=== PATIENT | male | born 1990 | race Caucasian/White ===

== ENCOUNTER 2022-10-31 20:50 | Emergency (ER) | payer OTHER ==
--- OUTSIDE RECORDS SUMMARY | 2022-10-31 20:56 | XMS REPORT | Continuity of Care Document ---
:1990 Author Organization [facility] Address [address] [facility] [address] [place] [id number] Care Team Providers Name Role Phone Dolly Patel MD Primary Care Physician [phone] DOLLY PATEL Attending Clinician Unavailable Dolly Patel MD Attending Clinician Acacia Becerril RN Attending Clinician Unavailable Anaya Fox MD Attending Clinician ANAYA FOX Attending Clinician Unavailable Doctor Unassigned, [place] Attending Clinician Unavailable [facility] Attending Clinician Unavailable Aguila Ewing MD Attending Clinician AGUILA EWING Attending Clinician Unavailable AGUILA EWING Attending Clinician Unavailable Sterling Ortiz RN Attending Clinician Unavailable SIRISHA MARINELLI Attending Clinician Unavailable Only, Ang Db Test Attending Clinician Unavailable Sirisha Oropeza Attending Clinician 2, [facility] Attending Clinician Unavailable Ashlyn Staley LVN Attending Clinician Unavailable Lab, Ang - Db Attending Clinician Unavailable DOLLY PATEL Admitting Clinician Unavailable Payers Payer Name Policy Type Policy Number Effective Date Expiration Date Eva diegovicki [facility] D[facility] [id number] 2022 COMP HMO D SNP 00:00:00 [facility] [id number] 2022 STAR PLUS 00:00:00 Problems Condition Condition Condition Status Onset Resolution Last Treating Co mments Source Name Details Category Date Date Treatment Clinician Date No known No known Disease Unive rs active active ity of problems problems [facility] Allergies, Adverse Reactions, Alerts Allergy Allergy Status Severity Reaction(s) Onset Inactive Treating Comm ents Source Name Type Date Date Clinician NO KNOWN Drug Active Univers ALLERGIE Class ity of S [facility] Social History Social Habit Start Date Stop Date Quantity Comments Source History of Smokes tobacco [place] of tobacco use daily [facility] Exposure to 2022-09-11 2022-09-21 Not sure [facility] SARS-CoV-2 00:00:00 16:06:00 [facility] (event) [place] Alcohol intake 2022-09-21 2022-09-21 Ex-drinker [facility] 00:00:00 00:00:00 (finding) [facility] Tobacco use and 2022-08-23 2022-08-23 Smokeless tobacco Un iversity of exposure 00:00:00 00:00:00 non-user [facility] Sex Assigned At [birth year] Universit y of 00:00:00 00:00:00 [facility] Smoking Status Start Date Stop Date Source Smokes tobacco daily 2022-08-23 00:00:00 [facility] Ordered Filled Start Stop Current Ordering Indication Dosage Frequency Signature Comments Components Source Medication Medication Date Date Medication? Clinician (SIG) Name Name lisinopriL Yes [id number] 20mg Take 1 U nivers 20 mg 5-11 tablet by ity of tablet 00:00: mouth in [place] the Medical morning Branch and 1 tablet in the evening. montelukast Yes [id number] 10mg Take 1 Univers 10 mg 5-11 tablet by ity of tablet 00:00: mouth in [place] [address] the Medical morning. Branch lisinopriL Yes [id number] 20mg Take 1 U nivers 20 mg 5-11 tablet by ity of tablet 00:00: mouth in [place] [address] the Medical morning Branch and 1 tablet in the evening. montelukast Yes [id number] 10mg Take 1 Univers 10 mg 5-11 tablet by ity of tablet 00:00: mouth in [place] the Medical morning. Branch testosteron Yes [id number] 100mg 0.5 mL by Univers e cypionate 5-11 Intramuscu it y of 200 mg/mL 00:00: lar route [place] injection 00 weekly. Medical Branch dextroamphe 3-0 Yes [id number] 30mg Take 1 Univers tamine-amph 4-17 tablet by ity of etamine 00:00: mouth in [place] ([facility]) 00 the Medical 30 mg morning Branch tablet and 1 tablet in the evening. dextroamphe 3-0 Yes [id number] 30mg Take 1 Univers tamine-amph 4-17 tablet by ity of etamine 00:00: mouth in [place] ([facility]) 00 the Medical 30 mg morning Branch tablet and 1 tablet in the evening. dextroamphe 3-0 Yes [id number] 30mg Take 1 [facility] tamine-amph 4-17 tablet by ity of etamine 00:00: mouth in [place] ([facility]) 00 the Medical 30 mg morning Branch tablet and 1 tablet in the evening. dextroamphe 3-0 Yes [id number] 30mg Take 1 Univers tamine-amph 4-17 tablet by ity of etamine 00:00: mouth in [place] ([facility]) 00 the Medical 30 mg morning Branch tablet and 1 tablet in the evening. gadobenate 2022-0 2023- No [id number] .2mL/kg 0.2 mL/kg, Univers dimeglumine 09-02 Intravenou i ty of (MULTIHANCE 16:30: 16:27 s, ONCE, 1 [place] -20 mL) 00 :00 dose, On Medical injection [place] Branch 0.2 mL/kg 09/02/22 at 1130, Routine dextroamphe 3-0 Yes [id number] 30mg Take 1 Univers tamine-amph 3-13 tablet by ity of etamine 00:00: mouth in [place] ([facility]) 00 the Medical 30 mg morning Branch tablet and 1 tablet in the evening. clonazePAM 3-0 Yes [id number] 2mg Take 1 U nivers 2 mg tablet 3-13 tablet by ity of 00:00: mouth [place] 00 every Medical morning Branch and evening. dextroamphe 3-0 Yes [id number] 30mg Take 1 Univers tamine-amph 3-13 tablet by ity of etamine 00:00: mouth in [place] ([facility]) 00 the Medical 30 mg morning Branch tablet and 1 tablet in the evening. clonazePAM 2023-0 Yes [id number] 2mg Take 1 U nivers 2 mg tablet 3-13 tablet by ity of 00:00: mouth [place] 00 every Medical morning Branch and evening. dextroamphe 2023-0 Yes [id number] 30mg Take 1 Univers tamine-amph 3-13 tablet by ity of etamine 00:00: mouth in [place] ([facility]) 00 the Medical 30 mg morning Branch tablet and 1 tablet in the evening. clonazePAM 2023-0 Yes [id number] 2mg Take 1 U nivers 2 mg tablet 3-13 tablet by ity of 00:00: mouth [place] 00 every Medical morning Branch and evening. dextroamphe 2023-0 Yes [id number] 30mg Take 1 Univers tamine-amph 3-13 tablet by ity of etamine 00:00: mouth in [place] ([facility]) 00 the Medical 30 mg morning Branch tablet and 1 tablet in the evening. clonazePAM 2023-0 Yes [id number] 2mg Take 1 U nivers 2 mg tablet 3-13 tablet by ity of 00:00: mouth [place] 00 every Medical morning Branch and evening. dextroamphe 2023-0 Yes [id number] 30mg Take 1 Univers tamine-amph 3-13 tablet by ity of etamine 00:00: mouth [facility] [place] [facility] the Medical 30 mg morning Branch tablet and 1 tablet in the evening. clonazePAM 2023-0 Yes [id number] 2mg Take 1 U nivers 2 mg tablet 3-13 tablet by ity of 00:00: mouth [place] 00 every Medical morning Branch and evening. dextroamphe 2023-0 Yes [id number] 30mg Take 1 Univers tamine-amph 3-13 tablet by ity of etamine 00:00: mouth in [place] ([facility]) 00 the Medical 30 mg morning Branch tablet and 1 tablet in the evening. clonazePAM 2023-0 Yes [id number] 2mg Take 1 U nivers 2 mg tablet 3-13 tablet by ity of 00:00: mouth [place] 00 every Medical morning Branch and evening. dextroamphe 2023-0 Yes [id number] 30mg Take 1 Univers tamine-amph 3-13 tablet by ity of etamine 00:00: mouth in [place] ([facility]) 00 the Medical 30 mg morning Branch tablet and 1 tablet in the evening. clonazePAM 2023-0 Yes [id number] 2mg Take 1 U nivers 2 mg tablet 3-13 tablet by ity of 00:00: mouth [place] 00 every Medical morning Branch and evening. clonazePAM 2023-0 Yes [id number] 2mg Take 1 U nivers 2 mg tablet 3-13 tablet by ity of 00:00: mouth [place] 00 every Medical morning Branch and evening. clonazePAM 2023-0 Yes [id number] 2mg Take 1 U nivers 2 mg tablet 3-13 tablet by ity of 00:00: mouth [place] 00 every Medical morning Branch and evening. clonazePAM 2023-0 Yes [id number] 2mg Take 1 U nivers 2 mg tablet 3-13 tablet by ity of 00:00: mouth [place] 00 every Medical morning Branch and evening. clonazePAM 2023-0 Yes [id number] 2mg Take 1 U nivers 2 mg tablet 3-13 tablet by ity of 00:00: mouth [place] 00 every Medical morning Branch and evening. dextroamphe 2023-0 3- No [id number] 30mg Take 1 Univers tamine-amph 3-13 04-15 tablet by it y of etamine 00:00: 00:00 mouth in [place] ([facility]) 00 :00 the Medical 30 mg morning Branch tablet and 1 tablet in the evening. dextroamphe 2023-0 Yes [id number] 30mg Take 1 Univers tamine-amph 2-20 tablet by ity of etamine 00:00: mouth in [place] ([facility]) 00 the Medical 30 mg morning Branch tablet and 1 tablet in the evening. dextroamphe 2023-0 3- No [id number] 30mg Take 1 Univers tamine-amph 2-20 03-13 tablet by it y of etamine 00:00: 00:00 mouth in [place] ([facility]) 00 :00 the Medical 30 mg morning Branch tablet and 1 tablet in the evening. dextroamphe 2023-0 3- No [id number] 30mg Take 1 Univers tamine-amph 2-20 03-13 tablet by it y of etamine 00:00: 00:00 mouth in [place] ([facility]) 00 :00 the Medical 30 mg morning Branch tablet and 1 tablet in the evening. CLONAZEPAM 2023-0 Yes [id number] TAKE 1 U nivers 2 mg tablet 1-23 TABLET BY ity of 00:00: MOUTH IN [place] 00 THE Medical MORNING Branch AND 1 IN THE EVENING lisinopriL 2022-0 Yes [id number] 20mg Take 1 U nivers 20 mg 1-23 tablet by ity of tablet 00:00: mouth in [place] 00 the Medical morning Branch and 1 tablet in the evening. montelukast 2022-0 Yes [id number] 10mg Take 1 Univers 10 mg 1-23 tablet by ity of tablet 00:00: mouth in [place] 00 the Medical morning. Branch sildenafiL 2022-0 Yes [id number] 100mg Take 1 Univers (VIAGRA) 1-23 tablet by ity of 100 mg 00:00: mouth as [place] tablet 00 needed Medical (take one Branch hour prior to sexual activity). Syringe-Nee 0 Yes [id number] Use as Univers dle, 07-05 directed ity of Safety,Disp 00:00: [place] Un 3 mL 23 00 Medical gauge x 1" Branch Syrg testosteron 2022-0 Yes [id number] 100mg 0.5 mL by Univers e cypionate -23 Intramuscu it y of 200 mg/mL 00:00: lar route [place] injection 00 weekly. Medical Branch lisinopriL 2022-0 Yes [id number] 20mg Take 1 U nivers 20 mg 1-23 tablet by ity of tablet 00:00: mouth in [place] 00 the Medical morning Branch and 1 tablet in the evening. montelukast 2022-0 Yes [id number] 10mg Take 1 Univers 10 mg 1-23 tablet by ity of tablet 00:00: mouth in [place] 00 the Medical morning. Branch sildenafiL 2022-0 Yes [id number] 100mg Take 1 Univers (VIAGRA) 1-23 tablet by ity of 100 mg 00:00: mouth as [place] tablet 00 needed Medical (take one Branch hour prior to sexual activity). Syringe-Nee 2022-0 Yes [id number] Use as Univers dle, 07-05 directed ity of Safety,Disp 00:00: [place] Un 3 mL 23 00 Medical gauge x 1" Branch Syrg testosteron 2022-0 Yes [id number] 100mg 0.5 mL by Univers e cypionate 1-23 Intramuscu it y of 200 mg/mL 00:00: lar route [place] injection 00 weekly. Medical Branch CLONAZEPAM 2022-0 Yes [id number] TAKE 1 U nivers 2 mg tablet 1-23 TABLET BY ity of 00:00: MOUTH IN [place] 00 THE Medical MORNING Branch AND 1 IN THE EVENING lisinopriL 2022-0 Yes [id number] 20mg Take 1 U nivers 20 mg 1-23 tablet by ity of tablet 00:00: mouth in [place] 00 the Medical morning Branch and 1 tablet in the evening. montelukast 2022-0 Yes [id number] 10mg Take 1 Univers 10 mg 1-23 tablet by ity of tablet 00:00: mouth in [place] 00 the morning. Branch sildenafiL 0 Yes [id number] 100mg Take 1 Univers (VIAGRA) 1-23 tablet by ity of 100 mg 00:00: mouth as [place] tablet 00 needed Medical (take one Branch hour prior to sexual activity). Syringe-Nee 0 Yes [id number] Use as Univers dle, 07-05 directed ity of Safety,Disp 00:00: [place] Un 3 mL 23 00 Medical gauge x 1" Branch Syrg testosteron 0 Yes [id number] 100mg 0.5 mL by Univers e cypionate 07-05 Intramuscu it y of 200 mg/mL 00:00: lar route [place] injection 00 weekly. Medical Branch CLONAZEPAM 2022-0 Yes [id number] TAKE 1 U nivers 2 mg tablet 1-23 TABLET BY ity of 00:00: MOUTH IN [place] 00 THE Medical MORNING Branch AND 1 IN THE EVENING lisinopriL 2022-0 Yes [id number] 20mg Take 1 U nivers 20 mg 1-23 tablet by ity of tablet 00:00: mouth in [place] 00 the Medical morning Branch and 1 tablet in the evening. montelukast 2022-0 Yes [id number] 10mg Take 1 Univers 10 mg 1-23 tablet by ity of tablet 00:00: mouth in [place] 00 the morning. Branch sildenafiL 2022-0 Yes [id number] 100mg Take 1 Univers (VIAGRA) 1-23 tablet by ity of 100 mg 00:00: mouth as [place] tablet 00 needed Medical (take one Branch hour prior to sexual activity). Syringe-Nee 0 Yes [id number] Use as Univers dle, 07-05 directed ity of Safety,Disp 00:00: [place] Un 3 mL 23 00 Medical gauge x 1" Branch Syrg testosteron 2022-0 Yes [id number] 100mg 0.5 mL by Univers e cypionate -23 Intramuscu it y of 200 mg/mL 00:00: lar route [place] injection 00 weekly. Medical Branch lisinopriL 2022-0 Yes [id number] 20mg Take 1 U nivers 20 mg 1-23 tablet by ity of tablet 00:00: mouth in [place] 00 the Medical morning Branch and 1 tablet in the evening. montelukast 2022-0 Yes [id number] 10mg Take 1 Univers 10 mg 1-23 tablet by ity of tablet 00:00: mouth in [place] 00 the Medical morning. Branch sildenafiL 2022-0 Yes [id number] 100mg Take 1 Univers (VIAGRA) 1-23 tablet by ity of 100 mg 00:00: mouth as [place] tablet 00 needed Medical (take one Branch hour prior to sexual activity). Syringe-Nee 0 Yes [id number] Use as Univers dle, 07-05 directed ity of Safety,Disp 00:00: [place] Un 3 mL 23 00 Medical gauge x 1" Branch Syrg testosteron 2022-0 Yes [id number] 100mg 0.5 mL by Univers e cypionate -23 Intramuscu it y of 200 mg/mL 00:00: lar route [place] injection 00 weekly. Medical Branch lisinopriL 2022-0 Yes [id number] 20mg Take 1 U nivers 20 mg 1-23 tablet by ity of tablet 00:00: mouth in [place] 00 the Medical morning Branch and 1 tablet in the evening. montelukast 2022-0 Yes [id number] 10mg Take 1 Univers 10 mg 1-23 tablet by ity of tablet 00:00: mouth in [place] 00 the Medical morning. Branch sildenafiL 2022-0 Yes [id number] 100mg Take 1 Univers (VIAGRA) 1-23 tablet by ity of 100 mg 00:00: mouth as [place] tablet 00 needed Medical (take one Branch hour prior to sexual activity). Syringe-Nee 2022-0 Yes [id number] Use as Univers dle, 07-05 directed ity of Safety,Disp 00:00: [place] Un 3 mL 23 00 Medical gauge x 1" Branch Syrg testosteron 2022-0 Yes [id number] 100mg 0.5 mL by Univers e cypionate 1-23 Intramuscu it y of 200 mg/mL 00:00: lar route [place] injection 00 weekly. Medical Branch lisinopriL 2022-0 Yes [id number] 20mg Take 1 U nivers 20 mg 1-23 tablet by ity of tablet 00:00: mouth in [place] 00 the Medical morning Branch and 1 tablet in the evening. montelukast 2022-0 Yes [id number] 10mg Take 1 Univers 10 mg 1-23 tablet by ity of tablet 00:00: mouth in [place] 00 the Medical morning. Branch sildenafiL 2022-0 Yes [id number] 100mg Take 1 Univers (VIAGRA) 1-23 tablet by ity of 100 mg 00:00: mouth as [place] tablet 00 needed Medical (take one Branch hour prior to sexual activity). Syringe-Nee 0 Yes [id number] Use as Univers dle, 07-05 directed ity of Safety,Disp 00:00: [place] Un 3 mL 00 Medical gauge x 1" Branch Syrg testosteron 0 Yes [id number] 100mg 0.5 mL by Univers e cypionate 1-23 Intramuscu it y of 200 mg/mL 00:00: lar route [place] injection 00 weekly. Medical Branch lisinopriL 2022-0 Yes [id number] 20mg Take 1 U nivers 20 mg 1-23 tablet by ity of tablet 00:00: mouth in [place] 00 the Medical morning Branch and 1 tablet in the evening. montelukast 2022-0 Yes [id number] 10mg Take 1 Univers 10 mg 1-23 tablet by ity of tablet 00:00: mouth in [place] 00 the Medical morning. Branch sildenafiL 2022-0 Yes [id number] 100mg Take 1 Univers (VIAGRA) 1-23 tablet by ity of 100 mg 00:00: mouth as [place] tablet 00 needed Medical (take one Branch hour prior to sexual activity). Syringe-Nee 2022-0 Yes [id number] Use as Univers dle, 07-05 directed ity of Safety,Disp 00:00: [place] Un 3 mL 23 00 Medical gauge x 1" Branch Syrg testosteron 2022-0 Yes [id number] 100mg 0.5 mL by Univers e cypionate 1-23 Intramuscu it y of 200 mg/mL 00:00: lar route [place] injection 00 weekly. Medical Branch lisinopriL 2022-0 Yes [id number] 20mg Take 1 U nivers 20 mg 1-23 tablet by ity of tablet 00:00: mouth in [place] 00 the Medical morning Branch and 1 tablet in the evening. montelukast 2022-0 Yes [id number] 10mg Take 1 Univers 10 mg 1-23 tablet by ity of tablet 00:00: mouth in [place] 00 the Medical morning. Branch sildenafiL 2022-0 Yes [id number] 100mg Take 1 Univers (VIAGRA) 1-23 tablet by ity of 100 mg 00:00: mouth as [place] tablet 00 needed Medical (take one Branch hour prior to sexual activity). Syringe-Nee 0 Yes [id number] Use as Univers dle, 07-05 directed ity of Safety,Disp 00:00: [place] Un 3 mL 23 00 Medical gauge x 1" Branch Syrg testosteron 2022-0 Yes [id number] 100mg 0.5 mL by Univers e cypionate 1-23 Intramuscu it y of 200 mg/mL 00:00: lar route [place] injection 00 weekly. Medical Branch lisinopriL 2022-0 Yes [id number] 20mg Take 1 U nivers 20 mg 1-23 tablet by ity of tablet 00:00: mouth in [place] 00 the Medical morning Branch and 1 tablet in the evening. montelukast 2022-0 Yes [id number] 10mg Take 1 Univers 10 mg 1-23 tablet by ity of tablet 00:00: mouth in [place] 00 the Medical morning. Branch sildenafiL 2022-0 Yes [id number] 100mg Take 1 Univers (VIAGRA) 1-23 tablet by ity of 100 mg 00:00: mouth as [place] tablet 00 needed Medical (take one Branch hour prior to sexual activity). Syringe-Nee 2022-0 Yes [id number] Use as Univers dle, 07-05 directed ity of Safety,Disp 00:00: [place] Un 3 mL 23 00 Medical gauge x 1" Branch Syrg testosteron 2022-0 Yes [id number] 100mg 0.5 mL by Univers e cypionate 1-23 Intramuscu it y of 200 mg/mL 00:00: lar route [place] injection 00 weekly. Medical Branch lisinopriL 2022-0 Yes [id number] 20mg Take 1 U nivers 20 mg 1-23 tablet by ity of tablet 00:00: mouth in [place] 00 the Medical morning Branch and 1 tablet in the evening. montelukast 2022-0 Yes [id number] 10mg Take 1 Univers 10 mg 1-23 tablet by ity of tablet 00:00: mouth in [place] 00 the Medical morning. Branch sildenafiL 2022-0 Yes [id number] 100mg Take 1 Univers (VIAGRA) 1-23 tablet by ity of 100 mg 00:00: mouth as [place] tablet 00 needed Medical (take one Branch hour prior to sexual activity). Syringe-Nee 2022-0 Yes [id number] Use as Univers dle, 07-05 directed ity of Safety,Disp 00:00: [place] Un 3 mL 23 00 Medical gauge x 1" Branch Syrg testosteron 0 Yes [id number] 100mg 0.5 mL by Univers e cypionate -23 Intramuscu it y of 200 mg/mL 00:00: lar route [place] injection 00 weekly. Medical Branch lisinopriL 2022-0 Yes [id number] 20mg Take 1 U nivers 20 mg 1-23 tablet by ity of tablet 00:00: mouth in [place] 00 the Medical morning Branch and 1 tablet in the evening. montelukast 2022-0 Yes [id number] 10mg Take 1 Univers 10 mg 1-23 tablet by ity of tablet 00:00: mouth in [place] 00 the Medical morning. Branch sildenafiL 2022-0 Yes [id number] 100mg Take 1 Univers (VIAGRA) 1-23 tablet by ity of 100 mg 00:00: mouth as [place] tablet 00 needed Medical (take one Branch hour prior to sexual activity). Syringe-Nee 2022-0 Yes [id number] Use as Univers dle, 07-05 directed ity of Safety,Disp 00:00: [place] Un 3 mL 23 00 Medical gauge x 1" Branch Syrg testosteron 2022-0 Yes [id number] 100mg 0.5 mL by Univers e cypionate 1-23 Intramuscu it y of 200 mg/mL 00:00: lar route [place] injection 00 weekly. Medical Branch sildenafiL 2022-0 Yes [id number] 100mg Take 1 Univers (VIAGRA) - tablet by ity of 100 mg 00:00: mouth as [place] tablet 00 needed Medical (take one Branch hour prior to sexual activity). Syringe-Nee 2022-0 Yes [id number] Use as Univers dle, 07-05 directed ity of Safety,Disp 00:00: [place] Un 3 mL Medical gauge x 1" Branch Syrg testosteron 2022-0 Yes [id number] 100mg 0.5 mL by Univers e cypionate 07-05 Intramuscu it y of 200 mg/mL 00:00: lar route [place] injection 00 weekly. Medical Branch sildenafiL 2022-0 Yes [id number] 100mg Take 1 Univers (VIAGRA) 07-05 tablet by ity of 100 mg 00:00: mouth as [place] tablet 00 needed Medical (take one Branch hour prior to sexual activity). Syringe-Nee 0 Yes [id number] Use as Univers dle, 07-05 directed ity of Safety,Disp 00:00: [place] Un 3 mL Medical gauge x 1" Branch Syrg lisinopriL 2022- No [id number] 20mg Take 1 Univers 20 mg 07-05 tablet by ity of tablet 00:00: 00:00 mouth in [place] 00 :00 the Medical morning Branch and 1 tablet in the evening. montelukast 2022- No [id number] 10mg Take 1 Univers 10 mg 07-05 tablet by ity of tablet 00:00: 00:00 mouth in [place] 00 :00 the Medical morning. Branch testosteron 0 2022- No [id number] 100mg 0.5 mL by Univers e cypionate 07-0511 Intramuscu i ty of 200 mg/mL 00:00: 00:00 lar route [place] injection 00 :00 weekly. Medical Branch CLONAZEPAM 2022-0 2022- No [id number] TAKE 1 Univers 2 mg tablet 07-05 TABLET BY it y of 00:00: 00:00 MOUTH IN [place] 00 :00 THE Medical MORNING Branch AND 1 IN THE EVENING CLONAZEPAM 2022-0 2022- No [id number] TAKE 1 Univers 2 mg tablet 07-05 TABLET BY it y of 00:00: 00:00 MOUTH IN [place] 00 :00 THE Medical MORNING Branch AND 1 IN THE EVENING dextroamphe 2022-0 Yes [id number] 30mg Take 1 [facility] tamine-amph 1-17 tablet by ity of etamine 00:00: mouth in [place] ([place]) 00 the Medical 30 mg morning Branch tablet and 1 tablet in the evening. dextroamphe 2022-0 Yes [id number] 30mg Take 1 [facility] tamine-amph 1-17 tablet by ity of etamine 00:00: mouth in [place] ([place]) 00 the Medical 30 mg morning Branch tablet and 1 tablet in the evening. dextroamphe 2022-0 Yes [id number] 30mg Take 1 [facility] tamine-amph 1-17 tablet by ity of etamine 00:00: mouth in [place] ([place]) 00 the Medical 30 mg morning Branch tablet and 1 tablet in the evening. dextroamphe 2022-0 Yes [id number] 30mg Take 1 [facility] tamine-amph 1-17 tablet by ity of etamine 00:00: mouth in [place] ([place]) 00 the Medical 30 mg morning Branch tablet and 1 tablet in the evening. dextroamphe 2022-0 3- No [id number] 30mg Take 1 Univers tamine-amph 1-17 02-18 tablet by it y of etamine 00:00: 00:00 mouth in [place] ([facility]) 00 :00 the Medical 30 mg morning Branch tablet and 1 tablet in the evening. dextroamphe 2021-1 Yes [id number] 30mg Take 1 [facility] tamine-amph 2-13 tablet by ity of etamine 00:00: mouth in [place] ([facility]) 00 the Medical 30 mg morning Branch tablet and 1 tablet in the evening. dextroamphe 2021-06- No [id number] 30mg Take 1 [facility] tamine-amph 2-13 01-13 tablet by it y of etamine 00:00: 00:00 mouth in [place] ([facility]) 00 :00 the Medical 30 mg morning Branch tablet and 1 tablet in the evening. testosteron 2021-06 Yes [id number] 100mg 0.5 mL by Univers e cypionate 1-28 Intramuscu it y of 200 mg/mL 00:00: lar route [place] injection 00 weekly. Medical Branch testosteron 2021-06 Yes [id number] 100mg 0.5 mL by Univers e cypionate 07-10 Intramuscu it y of 200 mg/mL 00:00: lar route [place] injection 00 weekly. [facility] [place] [facility] 2021-06 Yes [id number] 100mg 0.5 mL by Univers e cypionate 07-10 Intramuscu it y of 200 mg/mL 00:00: lar route [place] injection 00 weekly. [facility] 2021-06 Yes [id number] 100mg 0.5 mL by Univers e cypionate 07-10 Intramuscu it y of 200 mg/mL 00:00: lar route [place] injection 00 weekly. [facility] 2021-06- No [id number] 100mg 0.5 mL by Univers e cypionate 07-10 Intramuscu i ty of 200 mg/mL 00:00: 00:00 lar route [place] injection 00 :00 weekly. [facility] [place] [facility] montelukast 2021-06 Yes [id number] 10mg Take 1 Univers 10 mg 1-07 tablet by ity of tablet 00:00: mouth in [place] 00 the Medical morning. Branch sildenafiL 2021-06 Yes [id number] 100mg Take 1 Univers (VIAGRA) 1-07 tablet by ity of 100 mg 00:00: mouth as [place] tablet 00 needed Medical (take one Branch hour prior to sexual activity). [facility] 2021-06 Yes [id number] 100mg 1 mL by Univers e cypionate -07 Intramuscu it y of 100 mg/mL 00:00: lar route [place] injection 00 weekly. [facility] [place] [facility] montelukast 2021-06 Yes [id number] 10mg Take 1 [facility] 10 mg 1-07 tablet by ity of tablet 00:00: mouth in [place] 00 the Medical morning. Branch sildenafiL 2021-06 Yes [id number] 100mg Take 1 Univers (VIAGRA) 1-07 tablet by ity of 100 mg 00:00: mouth as [place] tablet 00 needed Medical (take one Branch hour prior to sexual activity). montelukast 2021-06 Yes [id number] 10mg Take 1 [facility] 10 mg 1-07 tablet by ity of tablet 00:00: mouth in [place] 00 the Medical morning. Branch sildenafiL 2021-06 Yes [id number] 100mg Take 1 [facility] (VIAGRA) 1-07 tablet by ity of 100 mg 00:00: mouth as [place] tablet 00 needed Medical (take one Branch hour prior to sexual activity). montelukast 2021-06 Yes [id number] 10mg Take 1 [facility] 10 mg 1-07 tablet by [facility] of tablet 00:00: mouth in [place] 00 the Medical morning. Branch sildenafiL 2021-06 Yes [id number] 100mg Take 1 [facility] (VIAGRA) 1-07 tablet by ity of 100 mg 00:00: mouth as [place] tablet 00 needed Medical (take one Branch hour prior to sexual activity). montelukast 2021-06 Yes [id number] 10mg Take 1 [facility] 10 mg 1-07 tablet by ity of tablet 00:00: mouth in [place] 00 the Medical morning. Branch sildenafiL 2021-06 Yes [id number] 100mg Take 1 [facility] (VIAGRA) 1-07 tablet by ity of 100 mg 00:00: mouth as [place] tablet 00 needed Medical (take one Branch hour prior to sexual activity). montelukast 2021-06- No [id number] 10mg Take 1 [facility] 10 mg -07-05 tablet by ity of tablet 00:00: 00:00 mouth in [place] 00 :00 the Medical morning. Branch sildenafiL 2021-06- No [id number] 100mg Take 1 [facility] (VIAGRA) -07 23 tablet by ity o f 100 mg 00:00: 00:00 mouth as [place] tablet 00 :00 needed Medical (take one Branch hour prior to sexual activity). testosteron 2021-06- No [id number] 100mg 1 mL by [facility] e cypionate 06-19 Intramuscu i ty of 100 mg/mL 00:00: 00:00 lar route [place] injection 00 :00 weekly. Medical Branch omeprazole 2021-06 Yes 20mg Take 20 mg U nivers magnesium 0-05 by mouth ity of (PRILOSEC 14:12: daily. [place] OTC ORAL) Medical Branch omeprazole 2021-06 Yes 20mg Take 20 mg U nivers magnesium 0-05 by mouth ity of (PRILOSEC 14:12: daily. [place] OTC ORAL) 12 Medical Branch omeprazole 2021-06 Yes 20mg Take 20 mg U nivers magnesium 0-05 by mouth ity of (PRILOSEC 14:12: daily. [place] OTC ORAL) 12 Medical Branch omeprazole 2021-06 Yes 20mg Take 20 mg U nivers magnesium 0-05 by mouth ity of (PRILOSEC 14:12: daily. [place] OTC ORAL) 12 Medical Branch omeprazole 2021-06 Yes 20mg Take 20 mg U nivers magnesium 0-05 by mouth ity of (PRILOSEC 14:12: daily. [place] OTC ORAL) 12 Medical Branch omeprazole 2021-06 Yes 20mg Take 20 mg U nivers magnesium 0-05 by mouth ity of (PRILOSEC 14:12: daily. [place] OTC ORAL) 12 Medical Branch omeprazole 2021-06 Yes 20mg Take 20 mg U nivers magnesium 0-05 by mouth ity of (PRILOSEC 14:12: daily. [place] OTC ORAL) 12 Medical Branch omeprazole 2021-06 Yes 20mg Take 20 mg U nivers magnesium 0-05 by mouth ity of (PRILOSEC 14:12: daily. [place] OTC ORAL) 12 Medical Branch omeprazole 2021-06 Yes 20mg Take 20 mg U nivers magnesium 0-05 by mouth ity of (PRILOSEC 14:12: daily. [place] OTC ORAL) 12 Medical Branch omeprazole 2021-06 Yes 20mg Take 20 mg U nivers magnesium 0-05 by mouth ity of (PRILOSEC 14:12: daily. [place] OTC ORAL) 12 Medical Branch omeprazole 2021-06 Yes 20mg Take 20 mg U nivers magnesium 0-05 by mouth ity of (PRILOSEC 14:12: daily. [place] OTC ORAL) 12 Medical Branch omeprazole 2021-06 Yes 20mg Take 20 mg U nivers magnesium 0-05 by mouth ity of (PRILOSEC 14:12: daily. [place] OTC ORAL) 12 Medical Branch omeprazole 2021-06 Yes 20mg Take 20 mg U nivers magnesium 0-05 by mouth ity of (PRILOSEC 14:12: daily. [place] OTC ORAL) 12 Medical Branch omeprazole 2021-06 Yes 20mg Take 20 mg U nivers magnesium 0-05 by mouth ity of (PRILOSEC 14:12: daily. [place] OTC ORAL) 12 Medical Branch omeprazole 2021-06 Yes 20mg Take 20 mg U nivers magnesium 0-05 by mouth ity of (PRILOSEC 14:12: daily. [place] OTC ORAL) 12 Medical Branch omeprazole 2021-06 Yes 20mg Take 20 mg U nivers magnesium 0-05 by mouth ity of (PRILOSEC 14:12: daily. [place] OTC ORAL) 12 Medical Branch omeprazole 2021-06 Yes 20mg Take 20 mg U nivers magnesium 0-05 by mouth ity of (PRILOSEC 14:12: daily. [place] OTC ORAL) 12 Medical Branch omeprazole 2021-06 Yes 20mg Take 20 mg U nivers magnesium 0-05 by mouth ity of (PRILOSEC 14:12: daily. [place] OTC ORAL) 12 Medical Branch omeprazole 2021-06 Yes 20mg Take 20 mg U nivers magnesium 0-05 by mouth ity of (PRILOSEC 14:12: daily. [place] OTC ORAL) 12 Medical Branch omeprazole 2021-06 Yes 20mg Take 20 mg U nivers magnesium 0-05 by mouth ity of (PRILOSEC 14:12: daily. [place] OTC ORAL) Medical Branch omeprazole 2021-06 Yes 20mg Take 20 mg U nivers magnesium 0-05 by mouth ity of (PRILOSEC 14:12: daily. [place] OTC ORAL) Medical Branch omeprazole 2021-06 Yes 20mg Take 20 mg U nivers magnesium 0-05 by mouth ity of (PRILOSEC 14:12: daily. [place] OTC ORAL) 12 Medical Branch omeprazole 2021-06 Yes 20mg Take 20 mg U nivers magnesium 0-05 by mouth ity of (PRILOSEC 14:12: daily. [place] OTC ORAL) Medical Branch omeprazole 2021-06 Yes 20mg Take 20 mg U nivers magnesium 0-05 by mouth ity of (PRILOSEC 14:12: daily. [place] OTC ORAL) 12 Medical Branch omeprazole 2021-06 Yes 20mg Take 20 mg U nivers magnesium 0-05 by mouth ity of (PRILOSEC 14:12: daily. [place] OTC ORAL) 12 Medical Branch dextroamphe 2021-06 Yes [id number] 30mg Take 1 [facility] tamine-amph 0-05 tablet by ity of etamine 00:00: mouth in [place] (ADDERALL) 00 the Medical 30 mg morning Branch tablet and 1 tablet in the evening. dextroamphe 2021-06 Yes [id number] 30mg Take 1 [facility] tamine-amph 0-05 tablet by ity of etamine 00:00: mouth in [place] (ADDERALL) 00 the Medical 30 mg morning Branch tablet and 1 tablet in the evening. dextroamphe 2021-06 Yes [id number] 30mg Take 1 [facility] tamine-amph 0-05 tablet by ity of etamine 00:00: mouth in [place] (ADDERALL) 00 the Medical 30 mg morning Branch tablet and 1 tablet in the evening. dextroamphe 2021-06 Yes [id number] 30mg Take 1 [facility] tamine-amph 0-05 tablet by ity of etamine 00:00: mouth in [place] (ADDERALL) 00 the Medical 30 mg morning Branch tablet and 1 tablet in the evening. dextroamphe 2021-06 Yes [id number] 30mg Take 1 [facility] tamine-amph 0-05 tablet by ity of etamine 00:00: mouth in [place] (ADDERALL) 00 the Medical 30 mg morning Branch tablet and 1 tablet in the evening. dextroamphe 2021-06 Yes [id number] 30mg Take 1 [facility] tamine-amph 0-05 tablet by ity of etamine 00:00: mouth in [place] (ADDERALL) 00 the Medical 30 mg morning Branch tablet and 1 tablet in the evening. dextroamphe 2021-06 Yes [id number] 30mg Take 1 [facility] tamine-amph 0-05 tablet by ity of etamine 00:00: mouth in [place] (ADDERALL) 00 the Medical 30 mg morning Branch tablet and 1 tablet in the evening. dextroamphe 2021-06 Yes [id number] 30mg Take 1 [facility] tamine-amph 0-05 tablet by ity of etamine 00:00: mouth in [place] (ADDERALL) 00 the Medical 30 mg morning Branch tablet and 1 tablet in the evening. dextroamphe 2021-06 No [id number] 30mg Take 1 [facility] tamine-amph 0-05 12-13 tablet by it y of etamine 00:00: 00:00 mouth in [place] (ADDERALL) 00 :00 the Medical 30 mg morning Branch tablet and 1 tablet in the evening. dextroamphe 2022-0 Yes [id number] 30mg Take 1 [facility] tamine-amph 9-19 tablet by ity of etamine 00:00: mouth in [place] (ADDERALL) 00 the Medical 30 mg morning Branch tablet and 1 tablet in the evening. dextroamphe 2022-0 Yes [id number] 30mg Take 1 [facility] tamine-amph 9-19 tablet by ity of etamine 00:00: mouth in [place] (ADDERALL) 00 the Medical 30 mg morning Branch tablet and 1 tablet in the evening. dextroamphe 2-0 2- No [id number] 30mg Take 1 [facility] tamine-amph 9-19 10-05 tablet by it y of etamine 00:00: 00:00 mouth in [place] (ADDERALL) 00 :00 the Medical 30 mg morning Branch tablet and 1 tablet in the evening. dextroamphe 2021-0 2- No [id number] 30mg Take 1 [facility] tamine-amph 9-19 10-05 tablet by it y of etamine 00:00: 00:00 mouth in [place] (ADDERALL) 00 :00 the Medical 30 mg morning Branch tablet and 1 tablet in the evening. dextroamphe 2-0 Yes [id number] 30mg Take 1 [facility] tamine-amph 9-12 tablet by ity of etamine 00:00: mouth in [place] (ADDERALL) 00 the Medical 30 mg morning Branch tablet and 1 tablet in the evening. dextroamphe 2021-0 2- No [id number] 30mg Take 1 [facility] tamine-amph 9-12 09-19 tablet by it y of etamine 00:00: 00:00 mouth in [place] (ADDERALL) 00 :00 the Medical 30 mg morning Branch tablet and 1 tablet in the evening. Syringe-Nee 2021-0 Yes [id number] Use as [facility] dle, 02-01 directed ity of Safety,Disp 00:00: [place] Un 3 mL 23 00 Medical gauge x 1" Branch Syrg Syringe-Nee 2021-0 Yes [id number] Use as [facility] dle, 8 directed ity of Safety,Disp 00:00: [place] Un 3 mL 23 00 Medical gauge x 1" Branch Syrg Syringe-Nee 2-0 Yes [id number] Use as [facility] dle, 8- directed ity of Safety,Disp 00:00: [place] Un 3 mL 23 00 Medical gauge x 1" Branch Syrg Syringe-Nee 2-0 Yes [id number] Use as [facility] dle, 8 directed ity of Safety,Disp 00:00: [place] Un 3 mL 23 00 Medical gauge x 1" Branch Syrg Syringe-Nee 2-0 Yes [id number] Use as [facility] dle, 8 directed ity of Safety,Disp 00:00: [place] Un 3 mL 23 00 Medical gauge x 1" Branch Syrg Syringe-Nee 2-0 Yes [id number] Use as [facility] dle, 8 directed ity of Safety,Disp 00:00: [place] Un 3 mL 23 00 Medical gauge x 1" Branch Syrg Syringe-Nee 2-0 Yes [id number] Use as [facility] dle, 02-01 directed ity of Safety,Disp 00:00: [place] Un 3 mL 23 00 Medical gauge x 1" Branch Syrg Syringe-Nee 2-0 Yes [id number] Use as [facility] dle, 02-01 directed ity of Safety,Disp 00:00: [place] Un 3 mL 23 00 Medical gauge x 1" Branch Syrg Syringe-Nee 2-0 Yes [id number] Use as [facility] dle, 02-01 directed ity of Safety,Disp 00:00: [place] Un 3 mL 23 00 Medical gauge x 1" Branch Syrg Syringe-Nee 2-0 Yes [id number] Use as [facility] dle, 8 directed ity of Safety,Disp 00:00: [place] Un 3 mL 23 00 Medical gauge x 1" Branch Syrg Syringe-Nee 2-0 Yes [id number] Use as [facility] dle, 8 directed ity of Safety,Disp 00:00: [place] Un 3 mL 23 00 Medical gauge x 1" Branch Syrg Syringe-Nee 2-0 Yes [id number] Use as [facility] dle, 8 directed ity of Safety,Disp 00:00: [place] Un 3 mL 23 00 Medical gauge x 1" Branch Syrg Syringe-Nee 2-0 Yes [id number] Use as [facility] dle, 8 directed ity of Safety,Disp 00:00: [place] Un 3 mL 23 00 Medical gauge x 1" Branch Syrg Syringe-Nee 0 Yes [id number] Use as [facility] dle, 02-01 directed ity of Safety,Disp 00:00: [place] Un 3 mL 23 00 Medical gauge x 1" Branch Syrg Syringe-Nee 2021-0 Yes [id number] Use as [facility] dle, 02-01 directed ity of Safety,Disp 00:00: [place] Un 3 mL Medical gauge x 1" Branch Syrg Syringe-Nee 2021-0 3- No [id number] Use as [facility] dle, 02-01 directed ity of Safety,Disp 00:00: 00:00 [place] Un 3 mL 23 00 :00 Medical gauge x 1" Branch Syrg dextroamphe 0 Yes [id number] 30mg Take 1 [facility] tamine-amph 8-10 tablet by ity of etamine 00:00: mouth in [place] (ADDERALL) 00 the Medical 30 mg morning Branch tablet and 1 tablet in the evening. testosteron 2021-0 Yes [id number] 100mg 1 mL by [facility] e cypionate 8-10 Intramuscu it y of 100 mg/mL 00:00: lar route [place] 00 weekly. Medical Branch clonazePAM 2021-0 Yes [id number] 2mg Take 1 U nivers 2 mg tablet 8-10 tablet by ity of 00:00: mouth in [place] 00 the Medical morning Branch and 1 tablet in the evening. testosteron 2021-0 Yes [id number] 100mg 1 mL by [facility] e cypionate 8-10 Intramuscu it y of 100 mg/mL 00:00: lar route [place] 00 weekly. Medical Branch clonazePAM 2021-0 Yes [id number] 2mg Take 1 U nivers 2 mg tablet 8-10 tablet by ity of 00:00: mouth in [place] 00 the Medical morning Branch and 1 tablet in the evening. testosteron 2021-0 Yes [id number] 100mg 1 mL by [facility] e cypionate 8-10 Intramuscu it y of 100 mg/mL 00:00: lar route [place] 00 weekly. Medical Branch clonazePAM 2021-0 Yes [id number] 2mg Take 1 U nivers 2 mg tablet 8-10 tablet by ity of 00:00: mouth in [place] 00 the Medical morning Branch and 1 tablet in the evening. testosteron 2021-0 Yes [id number] 100mg 1 mL by [facility] e cypionate 8-10 Intramuscu it y of 100 mg/mL 00:00: lar route [place] 00 weekly. Medical Branch clonazePAM 2021-0 Yes [id number] 2mg Take 1 U nivers 2 mg tablet 8-10 tablet by ity of 00:00: mouth in [place] 00 the Medical morning Branch and 1 tablet in the evening. testosteron 2021-0 Yes [id number] 100mg 1 mL by [facility] e cypionate 8-10 Intramuscu it y of 100 mg/mL 00:00: lar route [place] 00 weekly. Medical Branch clonazePAM 2021-0 Yes [id number] 2mg Take 1 U nivers 2 mg tablet 8-10 tablet by ity of 00:00: mouth in [place] 00 the Medical morning Branch and 1 tablet in the evening. testosteron 2021-0 Yes [id number] 100mg 1 mL by [facility] e cypionate 8-10 Intramuscu it y of 100 mg/mL 00:00: lar route [place] 00 weekly. Medical Branch clonazePAM 2021-0 Yes [id number] 2mg Take 1 U nivers 2 mg tablet 8-10 tablet by ity of 00:00: mouth in [place] 00 the Medical morning Branch and 1 tablet in the evening. testosteron 2021-0 Yes [id number] 100mg 1 mL by [facility] e cypionate 8-10 Intramuscu it y of 100 mg/mL 00:00: lar route [place] injection 00 weekly. Medical Branch clonazePAM 2-0 Yes [id number] 2mg Take 1 U nivers 2 mg tablet 8-10 tablet by ity of 00:00: mouth in [place] 00 the Medical morning Branch and 1 tablet in the evening. testosteron 2021-0 Yes [id number] 100mg 1 mL by [facility] e cypionate 8-10 Intramuscu it y of 100 mg/mL 00:00: lar route [place] 00 weekly. Medical Branch clonazePAM 2-0 Yes [id number] 2mg Take 1 U nivers 2 mg tablet 8-10 tablet by ity of 00:00: mouth in [place] 00 the Medical morning Branch and 1 tablet in the evening. testosteron 2-0 Yes [id number] 100mg 1 mL by [facility] e cypionate 8-10 Intramuscu it y of 100 mg/mL 00:00: lar route [place] 00 weekly. Medical Branch clonazePAM 2-0 Yes [id number] 2mg Take 1 U nivers 2 mg tablet 8-10 tablet by ity of 00:00: mouth in [place] 00 the Medical morning Branch and 1 tablet in the evening. testosteron 2022-0 Yes [id number] 100mg 1 mL by [facility] e cypionate 8-10 Intramuscu it y of 100 mg/mL 00:00: lar route [place] 00 weekly. Medical Branch clonazePAM 2-0 Yes [id number] 2mg Take 1 U nivers 2 mg tablet 8-10 tablet by ity of 00:00: mouth in [place] 00 the Medical morning Branch and 1 tablet in the evening. clonazePAM 2022-0 Yes [id number] 2mg Take 1 U nivers 2 mg tablet 8-10 tablet by ity of 00:00: mouth in [place] 00 the Medical morning Branch and 1 tablet in the evening. clonazePAM 2-0 Yes [id number] 2mg Take 1 U nivers 2 mg tablet 8-10 tablet by ity of 00:00: mouth in [place] 00 the Medical morning Branch and 1 tablet in the evening. clonazePAM 2022-0 Yes [id number] 2mg Take 1 U nivers 2 mg tablet 8-10 tablet by ity of 00:00: mouth in [place] 00 the Medical morning Branch and 1 tablet in the evening. clonazePAM 2022-0 Yes [id number] 2mg Take 1 U nivers 2 mg tablet 8-10 tablet by ity of 00:00: mouth in [place] 00 the Medical morning Branch and 1 tablet in the evening. clonazePAM 2022-0 2023- No [id number] 2mg Take 1 [facility] 2 mg tablet 8-10 - tablet by it y of 00:00: 00:00 mouth in [place] 00 :00 the Medical morning Branch and 1 tablet in the evening. clonazePAM 2022-0 2023- No [id number] 2mg Take 1 [facility] 2 mg tablet 8-10 -23 tablet by it y of 00:00: 00:00 mouth in [place] 00 :00 the Medical morning Branch and 1 tablet in the evening. testosteron 2022-0 2022- No [id number] 100mg 1 mL by [facility] e cypionate 8-10 11-04 Intramuscu i ty of 100 mg/mL 00:00: 00:00 lar route [place] injection 00 :00 weekly. Medical Branch dextroamphe 2021- No [id number] 30mg Take 1 [facility] tamine-amph 8-03 21-11 tablet by it y of etamine 00:00: 00:00 mouth in [place] (ADDERALL) 00 :00 the Medical 30 mg morning Branch tablet and 1 tablet in the evening. dextroamphe 2021- No [id number] 30mg Take 1 [facility] tamine-amph 6-30 08-10 tablet by it y of etamine 00:00: 00:00 mouth 2 [place] (ADDERALL) 00 :00 (two) Medical 30 mg times Branch tablet daily. lisinopriL 2021-0 Yes [id number] 20mg Take 1 U nivers 20 mg 6-21 tablet by ity of tablet 00:00: mouth 2 [place] (two) Medical times Branch daily. sildenafiL 2021-0 Yes [id number] 100mg Take 1 [facility] (VIAGRA) 6-21 tablet by ity of 100 mg 00:00: mouth as [place] tablet 00 needed Medical (take one Branch hour prior to sexual activity). lisinopriL 2021-0 Yes [id number] 20mg Take 1 U nivers 20 mg 6-21 tablet by ity of tablet 00:00: mouth 2 [place] (two) Medical times Branch daily. sildenafiL 2021-0 Yes [id number] 100mg Take 1 [facility] (VIAGRA) 6-21 tablet by ity of 100 mg 00:00: mouth as [place] tablet 00 needed Medical (take one Branch hour prior to sexual activity). lisinopriL 2021-0 Yes [id number] 20mg Take 1 U nivers 20 mg 6-21 tablet by ity of tablet 00:00: mouth 2 [place] [address] (two) Medical times Branch daily. sildenafiL 2021-0 Yes [id number] 100mg Take 1 [facility] (VIAGRA) 6-21 tablet by ity of 100 mg 00:00: mouth as [place] tablet 00 needed Medical (take one Branch hour prior to sexual activity). lisinopriL 2021-0 Yes [id number] 20mg Take 1 U nivers 20 mg 6-21 tablet by ity of tablet 00:00: mouth 2 (two) Medical times Branch daily. sildenafiL 2022-0 Yes [id number] 100mg Take 1 [facility] (VIAGRA) 6-21 tablet by ity of 100 mg 00:00: mouth as [place] tablet 00 needed Medical (take one Branch hour prior to sexual activity). lisinopriL 2022-0 Yes [id number] 20mg Take 1 U nivers 20 mg 6-21 tablet by ity of tablet 00:00: mouth 2 (two) Medical times Branch daily. sildenafiL 2022-0 Yes [id number] 100mg Take 1 [facility] (VIAGRA) 6-21 tablet by ity of 100 mg 00:00: mouth as [place] tablet 00 needed Medical (take one Branch hour prior to sexual activity). lisinopriL 2022-0 Yes [id number] 20mg Take 1 U nivers 20 mg 6-21 tablet by ity of tablet 00:00: mouth 2 (two) Medical times Branch daily. sildenafiL 2-0 Yes [id number] 100mg Take 1 [facility] (VIAGRA) 6-21 tablet by ity of 100 mg 00:00: mouth as [place] tablet 00 needed Medical (take one Branch hour prior to sexual activity). lisinopriL 2022-0 Yes [id number] 20mg Take 1 U nivers 20 mg 6-21 tablet by ity of tablet 00:00: mouth 2 (two) Medical times Branch daily. sildenafiL 2-0 Yes [id number] 100mg Take 1 [facility] (VIAGRA) 6-21 tablet by ity of 100 mg 00:00: mouth as [place] tablet 00 needed Medical (take one Branch hour prior to sexual activity). lisinopriL 2022-0 Yes [id number] 20mg Take 1 U nivers 20 mg 6-21 tablet by ity of tablet 00:00: mouth 2 (two) Medical times Branch daily. sildenafiL 2022-0 Yes [id number] 100mg Take 1 [facility] (VIAGRA) 6-21 tablet by ity of 100 mg 00:00: mouth as [place] tablet 00 needed Medical (take one Branch hour prior to sexual activity). lisinopriL 2022-0 Yes [id number] 20mg Take 1 U nivers 20 mg 6-21 tablet by ity of tablet 00:00: mouth 2 (two) Medical times Branch daily. sildenafiL 2022-0 Yes [id number] 100mg Take 1 [facility] (VIAGRA) 6-21 tablet by ity of 100 mg 00:00: mouth as [place] tablet 00 needed Medical (take one Branch hour prior to sexual activity). lisinopriL 2-0 Yes [id number] 20mg Take 1 U nivers 20 mg 6-21 tablet by ity of tablet 00:00: mouth 2 (two) Medical times Branch daily. sildenafiL 2-0 Yes [id number] 100mg Take 1 [facility] (VIAGRA) 6-21 tablet by ity of 100 mg 00:00: mouth as [place] tablet 00 needed Medical (take one Branch hour prior to sexual activity). lisinopriL 2021-0 Yes [id number] 20mg Take 1 U nivers 20 mg 6-21 tablet by ity of tablet 00:00: mouth 2 (two) Medical times Branch daily. sildenafiL 2021-0 Yes [id number] 100mg Take 1 [facility] (VIAGRA) 6-21 tablet by ity of 100 mg 00:00: mouth as [place] tablet 00 needed Medical (take one Branch hour prior to sexual activity). lisinopriL 2-0 Yes [id number] 20mg Take 1 U nivers 20 mg 6-21 tablet by ity of tablet 00:00: mouth 2 (two) Medical times Branch daily. lisinopriL 2021-0 Yes [id number] 20mg Take 1 U nivers 20 mg 6-21 tablet by ity of tablet 00:00: mouth 2 (two) Medical times Branch daily. lisinopriL 2-0 Yes [id number] 20mg Take 1 U nivers 20 mg 6-21 tablet by ity of tablet 00:00: mouth 2 (two) Medical times Branch daily. lisinopriL 2022-0 Yes [id number] 20mg Take 1 U nivers 20 mg 6-21 tablet by ity of tablet 00:00: mouth 2 (two) Medical times Branch daily. lisinopriL 2-0 Yes [id number] 20mg Take 1 U nivers 20 mg 6-21 tablet by ity of tablet 00:00: mouth 2 (two) Medical times Branch daily. lisinopriL 2022-0 2023- No [id number] 20mg Take 1 [facility] 20 mg 6-07-05 tablet by ity of tablet 00:00: 00:00 mouth 2 [place] 00 :00 (two) Medical times Branch daily. sildenafiL 2021- No [id number] 100mg Take 1 [facility] (VIAGRA) 6-21 11-04 tablet by ity o f 100 mg 00:00: 00:00 mouth as [place] tablet 00 :00 needed Medical (take one Branch hour prior to sexual activity). montelukast Yes [id number] 10mg Take 1 [facility] 10 mg 5-31 tablet by ity of tablet 00:00: mouth [place] 00 daily. Medical Branch montelukast Yes [id number] 10mg Take 1 [facility] 10 mg 5-31 tablet by ity of tablet 00:00: mouth [place] 00 daily. Medical Branch montelukast Yes [id number] 10mg Take 1 [facility] 10 mg 5-31 tablet by ity of tablet 00:00: mouth [place] 00 daily. Medical Branch montelukast Yes [id number] 10mg Take 1 [facility] 10 mg 5-31 tablet by ity of tablet 00:00: mouth [place] 00 daily. Medical Branch montelukast Yes [id number] 10mg Take 1 [facility] 10 mg 5-31 tablet by ity of tablet 00:00: mouth [place] 00 daily. Medical Branch montelukast Yes [id number] 10mg Take 1 [facility] 10 mg 5-31 tablet by ity of tablet 00:00: mouth [place] 00 daily. Medical Branch montelukast 0 Yes [id number] 10mg Take 1 [facility] 10 mg 5-31 tablet by ity of tablet 00:00: mouth [place] 00 daily. Medical Branch montelukast 0 Yes [id number] 10mg Take 1 [facility] 10 mg 5-31 tablet by ity of tablet 00:00: mouth [place] 00 daily. Medical Branch montelukast Yes [id number] 10mg Take 1 [facility] 10 mg 5-31 tablet by ity of tablet 00:00: mouth [place] 00 daily. Medical Branch montelukast Yes [id number] 10mg Take 1 [facility] 10 mg 5-31 tablet by ity of tablet 00:00: mouth [place] 00 daily. Medical Branch montelukast Yes [id number] 10mg Take 1 [facility] 10 mg 5-31 tablet by ity of tablet 00:00: mouth [place] 00 daily. Medical Branch montelukast 2021- No [id number] 10mg Take 1 [facility] 10 mg 5-31 11-04 tablet by ity of tablet 00:00: 00:00 mouth [place] 00 :00 daily. Medical Branch clonazePAM 2021- No [id number] 2mg Take 1 [facility] 2 mg tablet 11-10 08- tablet by it y of 00:00: 00:00 mouth 2 [place] 00 :00 (two) Medical times Branch daily. testosteron 2021- No [id number] 100mg 1 mL by [facility] e cypionate 11-10- Intramuscu i ty of 100 mg/mL 00:00: 00:00 lar route [place] injection 00 :00 weekly. Medical Branch Vital Signs Vital Name Observation Time Observation Value Comments Source Systolic blood 2022-09-21 21:23:00 152 mm[Hg] [facility] Diastolic blood 2022-09-21 21:23:00 105 mm[Hg] [facility] Heart rate 2022-09-21 21:22:00 111 /min [facility] Body height 2022-09-21 21:22:00 190.5 cm Universi ty [facility] Body weight 2022-09-21 21:22:00 146.965 kg Universi ty [facility] BMI 2022-09-21 21:22:00 40.50 kg/m2 [facility]i ty [facility] Systolic blood 2022-08-23 20:09:00 164 mm[Hg] [facility]iver [facility] of [facility] Diastolic blood 2022-08-23 20:09:00 101 mm[Hg] Unive rs[facility] of [facility] Heart rate 2022-08-23 20:02:00 108 /min Universi ty [facility] Body height 2022-08-23 20:02:00 190.5 cm Universi ty [facility] Body weight 2022-08-23 20:02:00 147.419 kg Universi ty [facility] BMI 2022-08-23 20:02:00 40.62 kg/m2 Universi ty [facility] Systolic blood 2022-03-17 19:07:00 150 mm[Hg] Univer sity of pressure [facility] Diastolic blood 2022-03-17 19:07:00 94 mm[Hg] Unive rsity of [facility] Heart rate 2022-03-17 19:06:00 90 /min Universi ty of [facility] Body height 2022-03-17 19:06:00 190.5 cm Universi ty of [facility] Body weight 2022-03-17 19:06:00 143.337 kg Universi ty of [facility] Branch BMI 2022-03-17 19:06:00 39.50 kg/m2 Universi ty of [facility] Systolic blood 2022-01-06 16:03:00 139 mm[Hg] Univer sity of pressure [facility] Diastolic blood 2022-01-06 16:03:00 84 [facility]Hg[facility] 2022-01-06 16:03:00 89 /min Universi ty of [facility] Body temperature 2022-01-06 16:00:[address] [facility] 2022-01-06 16:00:00 182.9 cm Universi ty of [facility] Body weight 2022-01-06 16:00:00 141.976 kg Universi ty of [facility] BMI 2022-01-06 16:00:00 42.45 kg/m2 Universi ty [facility] Oxygen saturation in 2022-01-06 16:00:00 96 /min [facility] Arterial blood by [facility] Pulse oximetry Branch Procedures Procedure Date / Time Performing Clinician Source Performed MR BRAIN W WO CONTRAST 2022-09-02 15:30:00 [place] [facility] INSURANCE CORRESPONDENCE 2022-03-31 05:01:00 Doctor Unassigned, [facility] HB ECG ROUTINE & RHYTHM 2022-01-06 16:08:05 Anaya Fox [facility] Encounters Start End Encounter Admission Attending Care Care Encounter Source Date/Time Date/Time Type Type Clinicians Facility Department ID 2022-11-23 2022-11-23 Outpatient Brittni PATEL [facility] [id number] Univers 13:45:00 13:45:00 DOLLY [facility] 2022-10-21 2022[facility]10-21 [facility] 1.2.840.114 [id number] Univers 00:00:00 00:00:00 [facility] 350.1.13.10 it y of [place] 4.2.7.2.686 [place] as RADHA?BLEA [phone] [address] MEDICAL OFFICE [facility] 2022-10-21 2022-10-21 Refbunny Becerril EVANS 1.2.840.114 [id number] Univers 00:00:00 00:00:00 Acacia WALTERS 350.1.13.10 it y of HOSPITAL 4.2.7.2.686 [place] as [id number] [address] 2022-09-25 2022-09-25 [facility] 1.2.840.114 [id number] Univers 00:00:00 00:00:00 [facility] 350.1.13.10 it y of [place] 4.2.7.2.686 [place] as RADHA?BLEA [id number] [address] OFFICE [facility] 2022-09-25 2022-09-25 [facility] 1.2.840.114 [id number] Univers 00:00:00 00:00:00 [facility] 350.1.13.10 it y of [place] 4.2.7.2.686 [place] as RADHA?BLEA [id number] [address] OFFICE [facility] 2022-09-21 2022-09-21 Office [facility] 1.2.840.114 [id number] Univers 16:15:00 16:30:00 Visit [facility] 350.1.13.10 it y of [place] 4.2.7.2.686 [place] as RADHA?BLEA [id number] [address] OFFICE [facility] 2022-09-21 2022-09-21 [facility] [id number] Univers 16:15:00 16:15:00 [facility] 2022-09-09 2022-09-09 Patient [facility] 1.2.840.114 [id number] Univers 00:00:00 00:00:00 Secure Msg Dolly [facility] 350.1.13.10 ity of [place] 4.2.7.2.686 [place] as RADHA?BLEA [phone] [address] MEDICAL OFFICE [facility] 2022-09-02 2022-09-02 [facility] [id number] Univers 08:56:49 23:59:00 [facility] 2022-09-02 2022-09-02 [facility] 1.2.840.114 [id number] Univers 08:56:49 23:59:00 Encounter Dolly Thomas [facility] 350.1.13.10 [facility] 4.2.7.2.[place] [phone] [address] 2022-08-23 2022-08-23 Outpatient R [facility] [id number] Univers 15:00:00 15:26:33 [facility] 2022-08-23 2022-08-23 Office [facility] 1.2.840.114 [id number] Univers 15:00:00 15:26:33 Visit [facility] 350.1.13.10 it y of [place] 4.2.7.2.686 [place] as RADHA?BLEA [phone] [address] MEDICAL OFFICE [facility] 2022-07-31 2022-07-31 Refill [facility] 1.2.840.114 [id number] Univers 00:00:00 00:00:00 [facility] 350.1.13.10 it y of [place] 4.2.7.2.686 [place] as RADHA?BLEA [id number] [address] OFFICE [facility] 2022-07-28 2022-07-28 Outpatient R [facility] [id number] Univers 15:45:00 15:45:00 DOLLY [facility] 2022-07-21 2022-07-21 [facility] [id number] [facility] 13:30:00 13:30:00 DOLLY lindsay [facility] 2022-07-05 2022-07-05 [facility] 1.2.840.114 [id number] [facility] 00:00:00 00:00:00 [facility] 350.1.13.10 it y of [place] 4.2.7.2.686 [place] as RADHA?BLEA [phone] [address] OFFICE [facility] 2022-07-03 2022-07-03 [facility] 1.2.840.114 [id number] Univers 00:00:00 00:00:00 [facility] 350.1.13.10 it y of [place] 4.2.7.2.686 [place] as RADHA?BLEA [id number] [address] OFFICE [facility] 2022-07-02 2022-07-02 [facility] 1.2.840.114 [id number] Univers 00:00:00 00:00:00 [facility] 350.1.13.10 it y of [place] 4.2.7.2.686 [place] as RADHA?BLEA [id number] [address] 2022-06-25 2022-06-25 [facility] 1.2.840.114 [id number] Univers 00:00:00 00:00:00 [facility] 350.1.13.10 it y of [place] 4.2.7.2.686 [place] as RADHA?BLEA [id number] [address] 2022-05-25 2022-05-25 [facility] 1.2.840.114 [id number] Univers 00:00:00 00:00:00 [facility] 350.1.13.10 it y of [place] 4.2.7.2.686 [place] as RADHA?BLEA [id number] [address] OFFICE [facility] 2022-05-10 2022-05-10 [facility] 1.2.840.114 [id number] Univers 00:00:00 00:00:00 Secure Msg [facility] 350.1.13.10 ity of [place] 4.2.7.2.686 [place] as RADHA?BLEA [phone] [address] OFFICE [facility] 2022-04-16 2022-04-16 Refill [facility] 1.2.840.114 [id number] Univers 00:00:00 00:00:00 [facility] 350.1.13.10 it y of [place] [facility] 4.2.7.2.686 [place] as RADHA?BLEA [phone] [address] 2022-04-12 2022-04-12 Letter [facility] 1.2.840.114 [id number] Univers 00:00:00 00:00:00 (Out) Anaya SPENCER 350.1.13.10 ity of [place].2.[place] [phone] [facility] NAL 059 [facility] 2022-04-07 2022-04-07 Outpatient R [facility] [id number] Univers 15:00:00 15:46:00 ANAYA mazay o f [facility] 2022-04-07 2022-04-07 Letter [facility] 1.2.840.114 [id number] Univers 00:00:00 00:00:00 (Out) Claudialoganrick [facility] 350.1.13.10 ity of [place] 4.2.7.2.[place] [id number] Ar dicmo NAL 059 [facility] 2022-03-31 2022-03-31 Orders Doctor EVANS 1.2.840.114 [id number] Univers 00:00:00 00:00:00 Only Unassigned, [place] 350.1.13.10 ity of [place] [facility] 4.2.7.2.686 [place] as [phone] [address] 2022-03-18 2022-03-18 Telephone [facility] 1.2.840.114 [id number] Univers 00:00:00 00:00:00 [facility] 350.1.13.10 it y of [place] 4.2.7.2.686 [place] RADHA?BLEA [phone] [place] GARCIA [address] [place] [address] MEDICAL OFFICE [facility] 2022-03-17 2022-03-17 Office [facility] 1.2.840.114 [id number] Univers 14:00:00 14:15:00 Visit [facility] 350.1.13.10 it y of [place] 4.2.7.2.686 [place] as RADHA?BLEA [id number] [place] [address] OFFICE [facility] 2022-03-17 2022-03-17 Outpatient [facility] [id number] Univers 14:00:00 14:00:00 [facility] 2022-03-14 2022-03-14 Refill [facility] 1.2.840.114 [id number] Univers 00:00:00 00:00:00 [facility] 350.1.13.10 it y of [place] 4.2.7.2.686 [place] as RADHA?BLEA [id number] [place] [address] OFFICE [facility] 2022-03-11 2022-03-11 Outpatient [facility] [id number] Univers 10:15:00 10:15:00 [facility] 2022-03-01 2022-03-01 Patient [facility] 1.2.840.114 [id number] Univers 00:00:00 00:00:00 Secure Msg [facility] 350.1.13.10 ity of [place] 4.2.7.2.686 [place] as RADHA?BLEA [id number] [place] [address] OFFICE [facility] 2022-02-21 2022-02-21 Refill [facility] 1.2.840.114 [id number] Univers 00:00:00 00:00:00 [facility] 350.1.13.10 it y of [place] 4.2.7.2.686 [place] as RADHA?BLEA [id number] [address] OFFICE [facility] 2022-02-21 2022-02-21 Refill [facility] 1.2.840.114 [id number] Univers 00:00:00 00:00:00 [facility] 350.1.13.10 it y of [place] 4.2.7.2.686 [place] as RADHA?BLEA [id number] [address] OFFICE [facility] 2022-02-01 2022-02-01 Telephone [facility] 1.2.840.114 [id number] Univers 00:00:00 00:00:00 [facility] 350.1.13.10 it y of [place] 4.2.7.2.686 [place] RADHA?BLEA [id number] [address] OFFICE [facility] 2022-02-01 2022-02-01 Patient [facility] 1.2.840.114 [id number] Univers 00:00:00 00:00:00 Secure Msg [facility] 350.1.13.10 ity of [place] 4.2.7.2.686 [place] as RADHA?BLEA [id number] [address] 2022-01-28 2022-01-28 Db2 [facility] 1.2 .840.114 [id number] Univers 13:00:00 13:15:00 Visit Aguila [facility]wing [facility] 350.1.13. 10 ity of [place] 4.2.7.2.[place] LUCINDA [id number] [address] 2022-01-28 2022-01-28 Outpatient R AGUILA EWING [facility] [id number] Univers 13:00:00 13:00:00 AGUILA EWING ity of [facility] 2022-01-28 2022-01-28 [facility] 1.2.840.114 [id number] Univers 00:00:00 00:00:00 [facility] 350.1.13.10 it y of [place] 4.2.7.2.686 [place] as RADHA?BLEA [id number] [address] MEDICAL OFFICE [facility] 2022-01-28 2022-01-28 Orders Doctor EVANS 1.2.840.114 [id number] Univers 00:00:00 00:00:00 Only Unassigned, [place] 350.1.13.10 ity of [place] [facility] 4.2.7.2.686 [place] as [id number] [address] 2022-01-20 2022-01-20 Outpatient R [facility] [id number] Univers 08:00:00 08:00:00 ANAYA lindsay o [facility] 2022-01-20 2022-01-20 Outpatient R [facility] [id number] Univers 08:00:00 08:00:00 [facility] 2022-01-20 2022-01-20 Telephone [facility] 1.2.840.114 [id number] Univers 00:00:00 00:00:00 [facility] 350.1.13.10 it y of [facility] 4.2.7.2.686 [place] as RADHA?BLEA [id number] [address] OFFICE [facility] 2022-01-20 2022-01-20 Refill Doctor [facility] 1.2.840.114 [id number] Univers 00:00:00 00:00:00 Unassigned, HEALTH 350.1.13.10 ity of [place] [facility] 4.2.7.2.686 [place] as RADHA?BLEA [id number] [address] OFFICE [facility] 2022-01-20 2022-01-20 Refill Doctor [facility] 1.2.840.114 [id number] Univers 00:00:00 00:00:00 Unassigned, HEALTH 350.1.13.10 ity of [place] 4.2.7.2.686 [place] as RADHA?BLEA [id number] [address] OFFICE [facility] 2022-01-20 2022-01-20 Refill [facility] 1.2.840.114 [id number] Univers 00:00:00 00:00:00 Dolly HEALTH 350.1.13.10 it y of [place] [facility] 4.2.7.2.686 [place] as RADHA?BLEA [phone] [facility] 0[address] [facility] OFFICE [facility] 2022-01-20 2022-01-20 Mala Brownkennedy [facility] 1.2.840.114 [id number] Univers 00:00:00 00:00:00 Dolly HEALTH 350.1.13.10 it y of [place] 4.2.7.2.686 [place] as RADHA?BLEA [phone] [address] OFFICE [facility] 2022-01-19 2022-01-19 Outpatient R RUDDY, [facility] [id number] Univers 08:00:00 08:00:00 ANAYA sanders [facility] 2022-01-19 2022-01-19 Outpatient R RUDDY, [facility] [id number] Univers 08:00:00 08:00:00 ANAYA sanders [facility] 2022-01-14 2022-01-14 Letter EVANS Ortiz 1.2.788.185 [id number] Univers 00:00:00 00:00:00 (Out) [place] 350.1.13.10 it y of HOSPITAL 4.2.7.2.686 [place] as [id number] [address] 2022-01-13 2022-01-13 Outpatient R RONNI [facility] [id number] Univers 15:45:00 16:11:55 SIRISHA lindsay [facility] 2022-01-13 2022-01-13 Laboratory Only, Ang Db Test [facility] 1.2.8 40.114 [id number] Univers 15:45:00 16:00:00 Only Sirisha Marinelli [facility] 350.1.13.10 ity of [facility] 4.2.7.2.686 [place] as RADHA?BLEA [id number] [facility] [address] [facility] OFFICE [facility] 2022-01-06 2022-01-06 Db2 Dba 2, Adc Lab [facility] 1.2.840.114 [id number] Univers 13:45:00 14:00:00 Visit Anaya Fox 350.1.13.10 ity of [place].7.2.[place] [phone] Ar dical NAL 353 [facility] 2022-01-06 2022-01-06 Outpatient R [facility] [id number] Univers 13:45:00 13:45:00 ANAYA mazay o f [facility] 2022-01-06 2022-01-06 Office [facility] 1.2.840.114 [id number] Univers 10:40:00 11:24:37 Visit Anaya SHIELDS 350.1.13.10 ity of [facility] 4.2.7.2.[place] [id number] Ar dical NAL 059 [facility] 2022-01-06 2022-01-06 Outpatient R [facility] [id number] Univers 10:40:00 11:24:37 ANAYA lindsay o f [facility] 2022-01-06 2022-01-06 Outpatient R [facility] [id number] Univers 10:40:00 11:24:37 ANAYA lindsay o denisa [facility] 2022-01-06 2022-01-06 Letter [facility] 1.2.840.114 [id number] Univers 00:00:00 00:00:00 (Out) Anaya SHIELDS 350.1.13.10 ity of [facility] 4.2.7.2.[place] [phone] Ar dicmo NAL 059 [facility] 2022-01-06 2022-01-06 Orders Doctor EVANS 1.2.840.114 [id number] Univers 00:00:00 00:00:00 Only Unassigned, [place] 350.1.13.10 ity of [place] [facility] 4.2.7.2.686 [place] as [id number] [address] 2021-12-24 2021-12-24 Outpatient R [facility] [id number] Univers 14:20:00 14:20:00 ANAYA lindsay o f [facility] 2021-12-23 2021-12-23 [facility] 1.2.840.114 [id number] Univers 00:00:00 00:00:00 Secure Msg Ashlyn [facility] 350.1.13.10 ity of [place] 4.2.7.2.686 [place] as RADHA?BLEA [phone] [place] GARCIA [address] [place] MEDICAL OFFICE [facility] 2021-12-08 2021-12-08 Telephone [facility] 1.2.840.114 [id number] Univers 00:00:00 00:00:00 [facility] HEALTH 350.1.13.10 it y of [place] 4.2.7.2.686 [place] as RADHA?BLEA [id number] [place] river GARCIA [address] [place] [address] OFFICE [facility] 2021-12-01 2021-12-01 Telephone [facility] 1.2.840.114 [id number] Univers 00:00:00 00:00:00 [facility] 350.1.13.10 it y of [place] 4.2.7.2.686 [place] as RADHA?BLEA [phone] [place] GARCIA [address] [place] [address] OFFICE [facility] 2021-11-30 2021-11-30 Outpatient Brittni PATEL [facility] [id number] Univers 00:00:00 00:00:00 DOLLY [facility] 2021-11-30 2021-11-30 Outpatient Brittni PATEL [facility] [id number] Univers 00:00:00 00:00:00 DOLLY [facility] 2021-11-10 2021-11-10 Db2 Dba Lab, Ang - Db [facility] 1.2.840.1 14 [id number] Univers 10:15:00 10:28:33 Visit AlicefelipeDolly gina [facility] 350.1.13 .10 ity of [facility] 4.2.7.2.686 [place] as RADHA?BLEA [phone] Ar river GARCIA [address] [facility] OFFICE [facility] 2021-11-10 2021-11-10 Outpatient Brittni PATEL [facility] [id number] Univers 10:15:00 10:15:00 DOLLY [facility] 2021-11-10 2021-11-10 Office [facility] 1..840.114 [id number] [facility] 09:30:00 10:00:00 Visit [facility] 350.1.13.10 it y of [place] 4.2.7.2.686 [place] as RADHA?BLEA [phone] [place] river [address] MEDICAL OFFICE BUILDING 2021-11-10 2021-11-10 Outpatient Brittni PATEL [facility] [id number] [facility] 09:30:00 09:30:00 DOLLY sriram [facility] Results This patient has no known results.
[2022-10-31 22:06] LABS: Absolute Lymphocytes (CBC) 1.5 K/uL (0.7-4.9); Hematocrit 43.9 % (39.6-49.0); MCV 93.3 fL (80-100); MPV 7.8 fL (7.6-11.3); RBC Red Blood Cell Count 4.71 M/uL (4.33-5.43)
[2022-10-31 22:09] LABS: Protime INR 0.9
[2022-10-31] MEDS ORDERED: ACETAMINOPHEN 500 MG TAB ONE (22:10)
[2022-10-31] MEDS ORDERED: VANCOMYCIN 1 GM/VIAL ONE (22:11)
[2022-10-31] MEDS ORDERED: NA CHLORIDE 0.9% 250 ML ONE (22:11)
[2022-10-31] MEDS ORDERED: NA CHLORIDE 0.9% 50 ML ONE (22:11)
[2022-10-31] MEDS ORDERED: NA CHLORIDE 0.9% 2,000 ML ONE (22:11)
[2022-10-31] MEDS ORDERED: CEFTRIAXONE 1000 MG/VIAL ONE (22:11)
[2022-10-31 22:22] LABS: Albumin 3.3 g/dL (3.4-5.0); Bilirubin Total 0.4 mg/dL (0.2-1.0); Potassium 3.2 mEq/L (3.5-5.1); Protein, Total 6.8 g/dL (6.4-8.2)
[2022-10-31 22:26] LABS: SARS-CoV-2 Antigen Rapid Res Negative (Negative)
--- NOTE | 2022-11-01 02:35 | ER ---
Nurse's Notes [facility] Name: Cortes Yung Age: 32 yrs Sex: Male : 1990 Arrival Date: 10/31/2022 Time: 20:50 Bed 7 Private MD: Diagnosis: Cellulitis of left lower limb Presentation: 10/31 21:27 Chief complaint: Patient states: i have a history of cellulitis and now is on both of lg3 my legs. swelling and hot to touch X1 week. Coronavirus screen: Client denies travel out of the [place] in the last 14 days. At this time, the client does not indicate any symptoms associated with coronavirus-19. Ebola Screen: No symptoms or risks identified at this time. Initial Sepsis Screen: Does the patient meet any 2 criteria? Temp <36.0*C (96.8*F)) or > 38.3*C (100.9*F). HR > 90 bpm. Yes Does the patient have a suspected source of infection? Yes: Skin breakdown/wound. Risk Assessment: Do you want to hurt yourself or someone else? Patient reports no desire to harm self or others. Onset of symptoms is unknown. 21:27 Method Of Arrival: Ambulatory lg3 21:27 Acuity: DIANELYS 3 lg3 Triage Assessment: 21:34 General: Appears in no apparent distress. uncomfortable, Behavior is calm, cooperative. lg3 Pain: Complains of pain in right leg and left leg. EENT: No deficits noted. No signs and/or symptoms were reported regarding the EENT system. Neuro: No deficits noted. Malik Agitation-Sedation Scale (RASS): 0 - Alert and Calm Level of Consciousness is awake, alert, obeys commands, Oriented to person, place, time, situation. Cardiovascular: No deficits noted. Denies chest pain, shortness of breath, Capillary refill < 3 seconds Clubbing of nail beds is absent JVD is absent Patient's skin is warm and dry. Respiratory: No deficits noted. Airway is patent Respiratory effort is even, unlabored, Respiratory pattern is regular, symmetrical. GI: No deficits noted. No signs and/or symptoms were reported involving the gastrointestinal system. Abdomen is round non-distended. : No deficits noted. No signs and/or symptoms were reported regarding the genitourinary system. Derm: Skin is intact, is healthy with good turgor, Skin is dry, Skin is normal, Skin temperature is warm swelling and reddening noted to bilateral lower extremities. Musculoskeletal: No deficits noted. Circulation, motion, and sensation intact. Range of motion: intact in all extremities, Swelling present in right leg and left leg. Historical: - Allergies: 21:34 No Known Allergies; lg3 - Home Meds: 21:34 Adderall XR Oral [Active]; Clonazepam Oral [Active]; lisinopril Oral [Active]; lg3 Singulair Oral [Active]; - PMHx: 21:34 adhd; Anxiety; HTN; lg3 - PSHx: 21:34 None; lg3 - Immunization history:: Adult Immunizations up to date. - Social history:: Smoking status: Patient reports the use of cigarette tobacco products, smokes one-half pack cigarettes per day, Reported history of juuling and/or vaping. Patient uses alcohol, occasionally. Screenin/22 01:48 [facility] ED Fall Risk Assessment (Adult) History of falling in the last 3 months, vc1 including since admission No falls in past 3 months (0 pts) Confusion or Disorientation No (0 pts) Intoxicated or Sedated No (0 pts) Impaired Gait No (0 pts) Mobility Assist Device Used No (0 pt) Altered Elimination No (0 pt) Score/Fall Risk Level 0 - 2 = Low Risk Oriented to surroundings, Maintained a safe environment, Educated pt \T\ family on fall prevention, incl call for assistance when getting out of bed. Abuse screen: Denies threats or abuse. Nutritional screening: No deficits noted. Tuberculosis screening: No symptoms or risk factors identified. Assessment: 10/31 23:10 Reassessment: Patient and/or family updated on plan of care and expected duration. Pain vc1 level reassessed. Patient states symptoms have improved. 11/01 01:30 Reassessment: No changes from previously documented assessment. Patient and/or family vc1 updated on plan of care and expected duration. Pain level reassessed. Patient states feeling better. 02:46 Reassessment: Patient appears in no apparent distress at this time. pt left er rv ambulatory with an adult accompanying him. ao x 4. Vital Signs: 10/31 21:27 BP 163 / 106; Pulse 107; Resp 19 S; Temp 100(O); Pulse Ox 97% on R/A; Weight 145.15 kg lg3 (R); Height 6 ft. 3 in. (R); 23:08 BP 146 / 83 (auto/lg); Pulse 101 MON; Resp 26 S; Temp 98.6(O); Pulse Ox 99% on R/A; vc1 11/01 00:15 BP 153 / 97; Pulse 87; Resp 20; Pulse Ox 99% ; vc1 01:47 BP 134 / 99; Pulse 86; Resp 19; Pulse Ox 98% ; vc1 02:15 BP 120 / 93; Pulse 85; Resp 20; Pulse Ox 96% on R/A; vc1 10/31 21:27 Body Mass Index 40.00 (145.15 kg, 190.5 cm) lg3 Corey Coma Score: 02:46 Eye Response: spontaneous(4). Motor Response: obeys commands(6). Verbal Response: rv oriented(5). Total: 15. ED Course: 10/31 20:54 Patient arrived in ED. mr 21:18 Sussy Gant FNP-C is PHCP. snw 21:18 Damien Cruz MD is Attending Physician. snw 21:31 Triage completed. lg3 21:34 Arm band placed on right wrist. lg3 21:40 Patient has correct armband on for positive identification. Bed in low position. Call vc1 light in reach. Side rails up X2. Client placed on continuous cardiac and pulse oximetry monitoring. NIBP monitoring applied. 22:15 SARS-COV-2 Antigen Rapid Sent. vc1 22:15 Influenza Screen (a \T\ B) Sent. vc1 11/01 01:02 Lactate w/ 2H reflex if indic. Sent. vc1 01:47 Naina Barajas, RN is Primary Nurse. vc1 02:45 No provider procedures requiring assistance completed. IV discontinued, intact, rv bleeding controlled, No redness/swelling at site. Pressure dressing applied. Administered Medications: 10/31 22:16 Drug: Acetaminophen PO 1000 mg Route: PO; ll3 11/01 02:47 Follow up: Response: Temperature is decreased rv 10/31 22:16 Drug: NS 0.9% IV (30 ml/kg) 30 ml/kg Route: IV; Rate: bolus; Site: right antecubital; ll3 11/01 02:32 Follow up: IV Status: Completed infusion; IV Intake: 2000ml vc1 10/31 22:16 Drug: NS 0.9% IV (30 ml/kg) 30 ml/kg Route: IV; Rate: bolus; Site: left hand; ll3 22:16 Drug: Rocephin IV 1 grams Route: IV; Rate: bolus; Site: right antecubital; ll3 22:37 Follow up: Response: No adverse reaction; IV Status: Completed infusion; IV Intake: [id number] 22:38 Drug: vancoMYCIN IVPB 1 grams Route: IVPB; Infused Over: 2 hrs; Site: right antecubital;ll3 Medication: 11/01 01:49 VIS not applicable for this client. vc1 Intake: 10/31 22:37 IV: 50ml; Total: 50ml. ll3 11/01 02:32 IV: 2000ml; Total: 2050ml. vc1 Outcome: 02:35 Discharge ordered by . bs3 02:47 Patient left the ED. rv Signatures: Sussy Gant, PATIENT FINANCIAL SERVICES SPECIALIST-C PATIENT FINANCIAL SERVICES SPECIALIST-CsnHolli Matias Ronaldo RN RN Diana Cochran, ALEXA RN lg3 Genoveva Jain RN RN ll3 Naina Barajas RN RN vc1 Damien Cruz MD MD bs3
--- NOTE | 2022-11-01 02:35 | EDPHYS ---
Physician Documentation [facility] Name: Cortes Yung Age: 32 yrs Sex: Male : 1990 Arrival Date: 10/31/2022 Time: 20:50 Bed 7 Private MD: ED Physician Damien Cruz HPI: 11/01 02:27 This 32 yrs old Male presents to ER via Ambulatory with complaints of Leg bs3 Swelling. 02:27 The patient presents with swelling, tenderness. 32yo m hx of htn, anxiety, adhd bs3 presents with left leg redness, he has chronic skin changes on . 02:30 Patient notes that over the last week he developed the symptoms and then developed bs3 fevers and chills today he notes that he has a history of cellulitis in that area on his left lower extremity before denies chest pain shortness of breath or anything else bothering him he has pain is moderate intensity worse with palpation better with rest. Historical: - Allergies: 10/31 21:34 No Known Allergies; lg3 - Home Meds: 21:34 Adderall XR Oral [Active]; Clonazepam Oral [Active]; lisinopril Oral [Active]; lg3 Singulair Oral [Active]; - PMHx: 21:34 adhd; Anxiety; HTN; lg3 - PSHx: 21:34 None; lg3 - Immunization history:: Adult Immunizations up to date. - Social history:: Smoking status: Patient reports the use of cigarette tobacco products, smokes one-half pack cigarettes per day, Reported history of juuling and/or vaping. Patient uses alcohol, occasionally. ROS: 11/01 02:30 Constitutional: +fever bs3 All other systems are negative. Exam: 02:30 Constitutional: This is a well developed, well nourished patient who is awake, alert, bs3 and in no acute distress. Head/Face: Normocephalic, atraumatic. ENT: mmm, no posterior phyarngeal erythema Chest/axilla: Normal chest wall appearance and motion. Nontender with no deformity. No lesions are appreciated. Cardiovascular: Regular rate and rhythm with a normal S1 and S2. symmetric pulses in upper extremities Respiratory: Lungs have equal breath sounds bilaterally, clear to auscultation, no respiratory distress Abdomen/GI: Soft, non-tender, no rebound or guarding Skin: Warm, dry with normal turgor. Normal color with no rashes, no lesions, and no evidence of cellulitis. MS/ Extremity: pt with erythema over the left lower extremity, warm, tender to touch. Neuro: Awake and alert, GCS 15, oriented to person, place, time, and situation. Cranial nerves II-XII grossly intact. Motor strength 5/5 in all extremities. Sensory grossly intact. Psych: Awake, alert, with orientation to person, place and time. Behavior, mood, and affect are within normal limits. Vital Signs: 10/31 21:27 BP 163 / 106; Pulse 107; Resp 19 S; Temp 100(O); Pulse Ox 97% on R/A; Weight 145.15 kg lg3 (R); Height 6 ft. 3 in. (R); 23:08 BP 146 / 83 (auto/lg); Pulse 101 MON; Resp 26 S; Temp 98.6(O); Pulse Ox 99% on R/A; vc1 11/01 00:15 BP 153 / 97; Pulse 87; Resp 20; Pulse Ox 99% ; vc1 01:47 BP 134 / 99; Pulse 86; Resp 19; Pulse Ox 98% ; vc1 02:15 BP 120 / 93; Pulse 85; Resp 20; Pulse Ox 96% on R/A; vc1 10/31 21:27 Body Mass Index 40.00 (145.15 kg, 190.5 cm) lg3 [place] Coma Score: 02:46 Eye Response: spontaneous(4). Motor Response: obeys commands(6). Verbal Response: rv oriented(5). Total: 15. MDM: 10/31 21:35 Patient medically screened. bs3 11/01 02:33 Data reviewed: vital signs, nurses notes. ED course: Patient with likely left lower bs3 extremity cellulitis will evaluate for sepsis we will do serial exams we will reassess his labs were notable for an elevated lactate he received IV fluid his lactate improved he felt better on reassessment here in the symptomology we discussed risk and benefits of inpatient versus outpatient treatment given that he has no significant comorbidities will discharge home strict to return with worsening cellulitis or any other concerning symptoms. 02:34 ED course: Very strict return precautions were given. 3 10/31 21:36 Order name: Blood Culture Adult (2) bs3 10/31 21:36 Order name: CBC with Diff; Complete Time: 22:51 [facility] 10/31 21:36 Order name: CMP; Complete Time: 22:51 [facility] 10/31 21:36 Order name: Lactate w/ 2H reflex if indic.; Complete Time: 22:51 [facility] 10/31 21:36 Order name: Protime (+inr); Complete Time: 22:18 [facility] 10/31 21:36 Order name: Ptt, Activated; Complete Time: 22:18 [facility] 10/31 21:43 Order name: Influenza Screen (a \T\ B); Complete Time: 23:14 [facility] 10/31 22:10 Order name: SARS-COV-2 Antigen Rapid; Complete Time: 22:51 EDMS 11/01 01:41 Order name: Lactate Sepsis 2 HR Follow-up; Complete Time: 02:16 EDMS 10/31 21:36 Order name: EKG; Complete Time: 21:37 [facility] 10/31 21:36 Order name: Accucheck; Complete Time: 22:21 [facility] 10/31 21:36 Order name: Cardiac monitoring; Complete Time: 21:58 [facility] 10/31 21:36 Order name: EKG - Nurse/Tech; Complete Time: 21:44 [facility] 10/31 21:36 Order name: IV Saline Lock - Large Bore; Complete Time: 21:58 [facility] 10/31 21:36 Order name: Labs collected and sent; Complete Time: 21:58 [facility] 10/31 21:36 Order name: O2 Per Protocol; Complete Time: 21:58 [facility] 10/31 21:36 Order name: O2 Sat Monitoring; Complete Time: 21:58 [facility] 10/31 21:36 Order name: Vital Signs; Complete Time: 21:57 bs3 Administered Medications: 10/31 22:16 Drug: Acetaminophen PO 1000 mg Route: PO; 3 11/01 02:47 Follow up: Response: Temperature is decreased rv 10/31 22:16 Drug: NS 0.9% IV (30 ml/kg) 30 ml/kg Route: IV; Rate: bolus; Site: right antecubital; 3 11/01 02:32 Follow up: IV Status: Completed infusion; IV Intake: 2000ml vc1 10/31 22:16 Drug: NS 0.9% IV (30 ml/kg) 30 ml/kg Route: IV; Rate: bolus; Site: left hand; ll3 22:16 Drug: Rocephin IV 1 grams Route: IV; Rate: bolus; Site: right antecubital; ll3 22:37 Follow up: Response: No adverse reaction; IV Status: Completed infusion; IV Intake: [id number] 22:38 Drug: vancoMYCIN IVPB 1 grams Route: IVPB; Infused Over: 2 hrs; Site: right antecubital;ll3 Disposition Summary: 11/01/22 02:35 Discharge Ordered Location: Home bs3 Problem: new bs3 Symptoms: have improved bs3 Condition: Stable bs3 Diagnosis - Cellulitis of left lower limb bs3 Followup: bs3 - With: Private Physician - When: 2 - 3 days - Reason: Recheck today's complaints Discharge Instructions: - Discharge Summary Sheet bs3 - Cellulitis, Adult bs3 Forms: - Work release form rv - Medication Reconciliation Form bs3 - Thank You Letter bs3 - Antibiotic Education bs3 - Prescription Opioid Use bs3 Prescriptions: - Clindamycin HCl 300 mg Oral Capsule - take 1 capsule by ORAL route every 6 hours for 10 days; 40 capsule; Refills: 0, bs3 Product Selection Permitted Signatures: Dispatcher [employer] [facility] Diana Anderson RN RN lg3 Genoveva Jain RN RN ll3 Damien Cruz MD MD bs3 Wandy Maddox PA-C PAElmer sb4 Titus Porter RN rv Naina Barajas RN vc1 Corrections: (The following items were deleted from the chart) 22:10 21:44 SARS-COV-2 RT PCR+[id number] ordered. [facility] 11/01 02:33 02:30 Constitutional: This is a well developed, well nourished patient who is awake, bs3 alert, and in no acute distress. Head/Face: Normocephalic, atraumatic. ENT: mmm, no posterior phyarngeal erythema Chest/axilla: Normal chest wall appearance and motion. Nontender with no deformity. No lesions are appreciated. Cardiovascular: Regular rate and rhythm with a normal S1 and S2. symmetric pulses in upper extremities Respiratory: Lungs have equal breath sounds bilaterally, clear to auscultation, no respiratory distress Abdomen/GI: Soft, non-tender, no rebound or guarding Skin: Warm, dry with normal turgor. Normal color with no rashes, no lesions, and no evidence of cellulitis. MS/ Extremity: pt with erythema over the left lower extremity, warm, tender to touch. Neuro: Awake and alert, GCS 15, oriented to person, place, time, and situation. Cranial nerves II-XII grossly intact. Motor strength 5/5 in all extremities. Sensory grossly intact. Psych: Awake, alert, with orientation to person, place and time. Behavior, mood, and affect are within normal limits. bs3
[2022-11-01 02:53] VITALS: TEMP 98.6
[2022-11-01 02:58] VITALS: BP 120/93; O2SAT 96
--- NOTE | 2022-11-01 15:22 | EKG ---
Test Date: 2022-10-31 Test Time: 21:40:57 Fundraising Officer: CARLOS MANUEL MEASUREMENT RESULTS: Intervals: Rate: 105 AK: 136 QRSD: 88 QT: 346 QTc: 457 [place]: P: 34 AK: 136 QRS: 41 T: 45 INTERPRETIVE STATEMENTS: Sinus tachycardia Otherwise normal ECG No previous ECG available for comparison Electronically Signed On 11-01-22 15:21:44 CDT by Maged Watson
== END 2022-11-01 02:47 | disposition home or self-care (01) ==
LOC: ER 20:50
DX: L03.116 Cellulitis of left lower limb (principal); I10 Essential (primary) hypertension; F41.9 Anxiety disorder, unspecified; F17.210 Nicotine dependence, cigarettes, uncomplicated; Z20.822 Contact with and (suspected) exposure to COVID-19
CPT/HCPCS: 93005; 87040 ×2; 85025; 36415; 85610; 83605 ×2; 85730; 80053; 87804 ×2; 87811; J7050; J7030; J0696